=== PATIENT | male | born 1995 | race Caucasian/White ===

== ENCOUNTER 2019-03-18 13:02 | Emergency (ER) | payer OTHER ==
[2019-03-18 13:24] VITALS: BP 122/53; PULSE 88; TEMP 100.6
[2019-03-18] MEDS ORDERED: ACETAMINOPHEN 500 MG TABLET (FP) PO ONE (14:46)
[2019-03-18] MEDS ORDERED: ACETAMINOPHEN 500 MG TABLET (FP) ONE (14:48)
--- NOTE | 2019-03-18 15:22 | PDOC ---
History of Present Illness - General Chief Complaint: Cold Symptoms Stated Complaint: FEVER/ COUGH Time Seen by Provider: 03/18/19 14:22 History Source: Patient Exam Limitations: No Limitations - History of Present Illness Initial Comments: 03/18/19 15:17 23-year-old male denies past medical history presents complaining of runny nose , cough, subjective fever, chills, one episode of nonbloody vomiting yesterday, one episode of diarrhea today, intermittent abdominal cramping, frontal headache , body aches for 24 hours. Patient lives alone however his mother was diagnosed with influenza 3 weeks ago. Patient denies recent travel, shortness of breath, back pain, chest pain, urinary symptoms or any other complaints. Patient took aspirin yesterday, has not taken any medication today. ROS: As noted above PE: GENERAL: well-appearing, NAD HEAD: NCAT EYES: Pupils equal, round and reactive to light, sclera anicteric, conjunctiva clear ENT: Normal bilateral ear canals, pharynx: no erythema, no exudate, uvula midline NECK: supple, no lymphadenopathy CHEST: nontender RESP: clear, no w/r/r CARDIO: rrr, no m/g/r ABD: +BS, soft, nontender, non distended BACK: no midline spinal ttp, no CVAT EXTREMITIES: Normal range of motion, no edema NEUROLOGICAL: Normal speech, normal gait SKIN: Warm, Dry Is this a multiple visit Asthma Patient?: No Past History - Past Medical History Allergies/Adverse Reactions: Allergies Allergy/AdvReac Type Severity Reaction Status Date / Time No Known Allergies Allergy Verified 03/18/19 13:24 Home Medications: Ambulatory Orders Oseltamivir Phosphate [Tamiflu] 75 mg PO BID 5 Days #10 capsule 03/18/19 COPD: No - Psycho Social/Smoking Cessation Hx Smoking History: Never smoked Have you smoked in the past 12 months: No Information on smoking cessation initiated: No Hx Alcohol Use: No Drug/Substance Use Hx: No *Physical Exam - Vital Signs Last Vital Signs Temp Pulse Resp BP Pulse Ox 100.6 F H 88 16 122/53 L 100 03/18/19 13:15 03/18/19 13:15 03/18/19 13:15 03/18/19 13:15 03/18/19 13:15 ED Treatment Course - Medications Given in the ED: ED Medications Discontinued Medications Generic Name Dose Route Start Last Admin Trade Name Óscar PRN Reason Stop Dose Admin Acetaminophen 1,000 mg 03/18/19 14:46 03/18/19 14:49 Tylenol - PO 03/18/19 14:47 1,000 mg ONCE ONE Administration Medical Decision Making - Medical Decision Making 03/18/19 15:19 23-year-old male with no past medical history complaining of dry cough, subjective fever and chills, runny nose, one episode of vomiting yesterday, one episode of diarrhea today, intermittent abdominal cramping, decreased appetite for 24 hours. Tolerating p.o. Does not appear ill Flu swab positive for influenza B Will treat with Tamiflu Stable for discharge Return precautions advised Discharge - Discharge Information Problems reviewed: Yes Clinical Impression/Diagnosis: Influenza Condition: Stable Disposition: HOME - Admission No - Follow up/Referral - Patient Discharge Instructions Additional Instructions: Take Tamiflu 75 mg 1 tablet twice a day for 5 days Follow-up with your doctor within 1 week Drink plenty of fluids Alternate between acetaminophen 975 mg and ibuprofen 600 mg every 6 hours as needed Rest Return to ER if shortness of breath, fever, worsening diarrhea, vomiting, chest pain or any other symptom - Post Discharge Activity
== END 2019-03-18 15:00 | disposition home or self-care (01) ==
LOC: JERFT 13:02
DX: J11.1 Influenza due to unidentified influenza virus with other respiratory manifestations (principal)
CPT/HCPCS: 87804; 99281-25

== ENCOUNTER 2023-09-23 19:58 | Emergency (ER) | payer OTHER ==
[2023-09-23 20:06] VITALS: BP 105/59; PULSE 81; RESP 20; TEMP 99.3; BMI 23.6
[2023-09-23] MEDS: CEPHALEXIN MONOHYDRATE 500 MG CAPSULE (UD) PO ONE (21:02)
[2023-09-23] MEDS ORDERED: CEPHALEXIN MONOHYDRATE 500 MG CAPSULE (UD) ONE (21:02)
== END 2023-09-23 21:06 | disposition home or self-care (01) ==
LOC: JER 19:58 → JERFT 19:58
DX: H61.21 Impacted cerumen, right ear (principal)
CPT/HCPCS: 99283-25

== ENCOUNTER → 2023-12-08 | Emergency (ER) | payer SELFPAY ==
[2023-12-08 11:12] VITALS: BP 134/78; PULSE 70; RESP 18; TEMP 98.3; BMI 22.1
== END ==
LOC: JERFT 11:06 → JER 11:06
DX: Z53.21 Procedure and treatment not carried out due to patient leaving prior to being seen by health care provider (principal)
CPT/HCPCS: 99281-25